=== PATIENT | female | born 1945 | race Caucasian/White ===

== ENCOUNTER 2017-03-28 10:32 | Inpatient (IN) | payer MEDICARE, OTHER ==
[~2017-03-28] VITALS: Ht 162.6 cm; Wt 94.9 kg
[2017-03-28 12:02] LABS: BASOPHIL 0.4 % (0-2); EOSINOPHIL 1.9 % (0-7); HCT 34.6 % (37.0-47.0); HGB 11.9 g/dl (12.5-16.0); LYMPHOCYTE 17.4 % (15-48); MCH 32.1 pg (25.0-31.0); MCHC 34.4 g/dL (32.0-36.0); MCV 93.3 fL (78.0-100.0); MONOCYTE 8.8 % (0-12); NEUTROPHIL 71.5 % (41-80); PLT 192 K/uL (150-400); RBC 3.71 M/uL (4.20-5.40); RDW 12.6 % (11.5-14.0); WBC 5.4 K/uL (4.0-10.5)
[2017-03-28 12:10] LABS: INR 1.9 (0.9-1.2); PROTHROMBIN TIME 21.2 SECONDS (11.7-14.0); PTT 37.1 SECONDS (23.2-31.4)
[2017-03-28 12:16] LABS: ALBUMIN 3.8 g/dL (3.4-4.8); BILIRUBIN - TOTAL 0.5 mg/dL (0.1-1.0); CREATININE 0.7 mg/dL (0.5-1.0); GLOBULIN (CALCULATION) 2.8 g/dL (2.2-4.2); MAGNESIUM 1.65 mg/dL (1.40-2.10); POTASSIUM 3.4 mmol/L (3.5-5.1); TOTAL PROTEIN 6.6 g/dL (6.4-8.3)
[2017-03-28 12:24] LABS: MYOGLOBIN 30 ng/mL (26-65); TROPONIN T < 0.010 ng/mL
[2017-03-28 12:27] LABS: PRO-BNP 709 pg/mL (0-125)
[2017-03-28 17:20] LABS: CKMB 1.28 ng/mL (0.97-4.94); TROPONIN T < 0.010 ng/mL
[2017-03-28 17:50] LABS: BILIRUBIN NEGATIVE (NEGATIVE); BLOOD 1+ Ery/uL (NEGATIVE); CLARITY CLEAR (CLEAR); COLOR YELLOW (YELLOW); GLUCOSE (U) NORMAL (NORMAL); KETONE (U) NEGATIVE (NEGATIVE); LEUKOCYTES 2+ Leu/uL (NEGATIVE); NITRITE NEGATIVE (NEGATIVE); PROTEIN NEGATIVE (NEGATIVE); UROBILINOGEN 0.2 mg/dL (0.2-1.0)
[2017-03-29 04:59] LABS: HCT 32.2 % (37.0-47.0); HGB 10.7 g/dl (12.5-16.0); MCH 31.3 pg (25.0-31.0); MCHC 33.2 g/dL (32.0-36.0); MCV 94.2 fL (78.0-100.0); MPV 9.8 fL (6.0-9.5); RBC 3.42 M/uL (4.20-5.40); RDW 12.6 % (11.5-14.0); WBC 4.9 K/uL (4.0-10.5)
[2017-03-29 05:07] LABS: INR 2.04 (0.9-1.2); PROTHROMBIN TIME 22.4 SECONDS (11.7-14.0)
[2017-03-29 05:16] LABS: CREATININE 0.7 mg/dL (0.5-1.0); POTASSIUM 3.6 mmol/L (3.5-5.1)
[2017-03-29] MEDS ORDERED: VENTOLIN HFA IN18 GM INH (14:43)
[2017-03-29] MEDS ORDERED: ZESTRIL5 MG PO (14:44)
[2017-03-29] MEDS ORDERED: SYNTHROID100 MCG PO (14:44)
[2017-03-29] MEDS ORDERED: ZOLOFT100 MG PO (14:44)
[2017-03-29] MEDS ORDERED: PRILOSEC20 MG PO (14:44)
[2017-03-29] MEDS ORDERED: HCTZ12.5 MG PO (14:44)
[2017-03-29] MEDS ORDERED: PRIMIDONE PO (14:45)
[2017-03-29] MEDS ORDERED: LOPRESSOR25 MG PO (14:45)
[2017-03-29] MEDS ORDERED: COUMADIN4 MG PO (14:45)
[2017-03-29] MEDS ORDERED: ZOCOR40 MG PO (14:46)
== END 2017-03-29 12:40 | disposition home or self-care (01) | DRG 310 ==
LOC: FER 10:32 → FTCU 13:42
PROVIDERS: Emergency Medicine; ADMIT Internal Medicine
DX: I48.91 Unspecified atrial fibrillation (principal); I50.9 Heart failure, unspecified; J44.9 Chronic obstructive pulmonary disease, unspecified; I10 Essential (primary) hypertension; E78.5 Hyperlipidemia, unspecified; Z79.01 Long term (current) use of anticoagulants; F32.9 Major depressive disorder, single episode, unspecified; E03.9 Hypothyroidism, unspecified
CPT/HCPCS: 36415; 71010; 80048; 80053; 81003; 82550; 82553; 83735; 83874; 83880; 84443; 84484; 85025; 85610; 85730; 93005

== ENCOUNTER 2017-04-17 21:46 | Emergency (ER) | payer MEDICARE, OTHER ==
[~2017-04-17 21:46] MED LIST: COUMADIN4 MG PO; HCTZ12.5 MG PO; LOPRESSOR25 MG PO; PRILOSEC20 MG PO; PRIMIDONE PO; SYNTHROID100 MCG PO; VENTOLIN HFA IN18 GM INH; ZESTRIL5 MG PO; ZOCOR40 MG PO; ZOLOFT100 MG PO
[2017-04-17 22:54] LABS: BASOPHIL 0.2 % (0-2); EOSINOPHIL 3.2 % (0-7); HCT 33.1 % (37.0-47.0); HGB 11.3 g/dl (12.5-16.0); LYMPHOCYTE 29.1 % (15-48); MCH 31.3 pg (25.0-31.0); MCHC 34.1 g/dL (32.0-36.0); MCV 91.7 fL (78.0-100.0); MONOCYTE 10.3 % (0-12); MPV 9.6 fL (6.0-9.5); NEUTROPHIL 57.2 % (41-80); PLT 162 K/uL (150-400); RBC 3.61 M/uL (4.20-5.40); RDW 12.6 % (11.5-14.0); WBC 4.1 K/uL (4.0-10.5)
[2017-04-17 23:04] LABS: INR 4.2 (0.9-1.2); PROTHROMBIN TIME 39.6 SECONDS (11.7-14.0)
[2017-04-17 23:09] LABS: ALBUMIN 3.8 g/dL (3.4-4.8); BILIRUBIN - TOTAL 0.4 mg/dL (0.1-1.0); CREATININE 0.9 mg/dL (0.5-1.0); GLOBULIN (CALCULATION) 2.6 g/dL (2.2-4.2); POTASSIUM 3.2 mmol/L (3.5-5.1); TOTAL PROTEIN 6.4 g/dL (6.4-8.3)
== END 2017-04-18 03:54 | disposition home or self-care (01) ==
LOC: FER 21:46
PROVIDERS: Emergency Medicine Emergency Medical Services
DX: T82.838A Hemorrhage due to vascular prosthetic devices, implants and grafts, initial encounter (principal); I71.4 Abdominal aortic aneurysm, without rupture; J44.9 Chronic obstructive pulmonary disease, unspecified; Z88.8 Allergy status to other drugs, medicaments and biological substances; Z79.01 Long term (current) use of anticoagulants; Y83.8 Other surgical procedures as the cause of abnormal reaction of the patient, or of later complication, without mention of misadventure at the time of the procedure
CPT/HCPCS: 36415; 75635; 80053; 85025; 85610; 85730; Q9967

== ENCOUNTER 2021-04-28 14:14 | Inpatient (IN) | payer MEDICARE, OTHER ==
[~2021-04-28] VITALS: Ht 167.6 cm; Wt 102.2 kg
[~2021-04-28 14:14] MED LIST changes: +ABILIFY10 MG PO; +AMOX TR-K CLV1 EAC4 PO; +ANORO ELLIPTA1 EACH INH; +CRESTOR10 MG PO; +DITROPAN XL *OUT5 MG PO; +ELIQUIS5 MG PO; +METOPROLOL SUCC50 MG PO; +METRONIDAZOLE500 MG PO; +SINGULAIR10 MG PO; +TOPROL XL50 MG PO; +ZESTORETIC 10-1 EACH PO
[2021-04-28 15:31] LABS: BASOPHIL 0.8 % (0-2); EOSINOPHIL 1.9 % (0-7); HCT 41.8 % (37.0-47.0); HGB 13.9 g/dl (12.5-16.0); LYMPHOCYTE 13.7 % (15-48); MCH 32.2 pg (25.0-31.0); MCHC 33.3 g/dL (32.0-36.0); MCV 96.8 fL (78.0-100.0); MONOCYTE 3.8 % (0-12); MPV 10.3 fL (6.0-9.5); NEUTROPHIL 79.4 % (41-80); NRBC 0; PLT 147 K/uL (150-400); RBC 4.32 M/uL (4.20-5.40); RDW 12.6 % (11.5-14.0); WBC 5.3 K/uL (4.0-10.5)
[2021-04-28 15:50] LABS: ALBUMIN 3.1 g/dL (3.4-5.0); BILIRUBIN - TOTAL 0.7 mg/dL (0.2-1.0); BUN/CREAT RATIO (CALC) 11.5 RATIO; CREATININE 0.87 mg/dL (0.51-0.95); GLOBULIN (CALCULATION) 3.3 g/dL; MAGNESIUM 1.5 mg/dL (1.8-2.4); POTASSIUM 3.2 mmol/L (3.5-5.1); TOTAL PROTEIN 6.4 g/dL (6.4-8.2)
[2021-04-28 15:54] LABS: PRO-BNP 2809 pg/mL (<125)
[2021-04-28 16:07] LABS: LACTIC ACID 2.1 mmol/L (0.4-1.9)
[2021-04-28] MEDS ORDERED: TOPROL XL 50 MG50 MG PO (20:16)
[2021-04-29 02:51] LABS: BILIRUBIN NEGATIVE (NEGATIVE); BLOOD TRACE-INTACT Ery/uL (NEGATIVE); CLARITY CLEAR (CLEAR); COLOR YELLOW (YELLOW); GLUCOSE (U) NORMAL (NORMAL); LEUKOCYTES 1+ Leu/uL (NEGATIVE); NITRITE POSITIVE (NEGATIVE); PROTEIN NEGATIVE (NEGATIVE); pH 6.5 (5.0-9.0)
[2021-04-29 02:59] LABS: BACTERIA 1+; URINARY WBC 20-50
[2021-04-29 04:07] LABS: BASOPHIL 0.2 % (0-2); EOSINOPHIL 0 % (0-7); HCT 37.6 % (37.0-47.0); HGB 12.6 g/dl (12.5-16.0); LYMPHOCYTE 11.5 % (15-48); MCH 32.4 pg (25.0-31.0); MCHC 33.5 g/dL (32.0-36.0); MCV 96.7 fL (78.0-100.0); MONOCYTE 6.5 % (0-12); MPV 10.2 fL (6.0-9.5); NEUTROPHIL 81.4 % (41-80); NRBC 0; PLT 141 K/uL (150-400); RBC 3.89 M/uL (4.20-5.40); RDW 12.6 % (11.5-14.0); WBC 4.8 K/uL (4.0-10.5)
[2021-04-29 04:37] LABS: BUN/CREAT RATIO (CALC) 15.1 RATIO; CREATININE 0.86 mg/dL (0.51-0.95); POTASSIUM 3.7 mmol/L (3.5-5.1)
[2021-04-29 16:21] LABS: IRON % SATURATION 14.5 %SAT (20-50)
[2021-04-30 04:37] LABS: BASOPHIL 0.1 % (0-2); EOSINOPHIL 0 % (0-7); HCT 38.9 % (37.0-47.0); HGB 12.8 g/dl (12.5-16.0); LYMPHOCYTE 7.7 % (15-48); MCH 32.7 pg (25.0-31.0); MCHC 32.9 g/dL (32.0-36.0); MCV 99.5 fL (78.0-100.0); MONOCYTE 2.1 % (0-12); MPV 10.8 fL (6.0-9.5); NEUTROPHIL 89.3 % (41-80); NRBC 0; PLT 130 K/uL (150-400); RBC 3.91 M/uL (4.20-5.40); RDW 12.7 % (11.5-14.0); WBC 7.3 K/uL (4.0-10.5)
[2021-04-30 04:56] LABS: BUN/CREAT RATIO (CALC) 17.5 RATIO; CREATININE 0.8 mg/dL (0.51-0.95); MAGNESIUM 1.8 mg/dL (1.8-2.4); POTASSIUM 4.2 mmol/L (3.5-5.1)
--- NOTE | 2021-04-30 14:11 | NUR ---
04/30/21 Ms. Hammer lives alone in an apartment. She has 02, rw, s.chair, concentrator and portable 02. Ms. Hammer reports to use the 02 at night. However, [facility], , reports to 02 to be ordered continous at 2L. Please faxed an order to [employer] at if the 02 liter flow is increased from 2L. - Ms. Hammer has one son whom she rarely sees. 2 neighbors and a nephew, Fadi Ferguson, assist at needed. [facility] provides home making 1 x per week. [facility] are [facility] 3 times per week. - Ms. Hammer chose [facility] for nursing services. [facility] [phone] if patient discharges over the weekend.
[2021-05-01 04:27] LABS: BASOPHIL 0.1 % (0-2); EOSINOPHIL 0 % (0-7); HCT 38.3 % (37.0-47.0); HGB 12.7 g/dl (12.5-16.0); MCH 32.2 pg (25.0-31.0); MCHC 33.2 g/dL (32.0-36.0); MONOCYTE 1.9 % (0-12); MPV 10.5 fL (6.0-9.5); NEUTROPHIL 92.3 % (41-80); NRBC 0; PLT 136 K/uL (150-400); RBC 3.95 M/uL (4.20-5.40); RDW 12.6 % (11.5-14.0)
[2021-05-01 04:28] LABS: WBC 7.5 K/uL (4.0-10.5)
[2021-05-01 04:48] LABS: ALBUMIN 2.9 g/dL (3.4-5.0); BILIRUBIN - TOTAL 0.3 mg/dL (0.2-1.0); BUN/CREAT RATIO (CALC) 20.2 RATIO; CREATININE 0.84 mg/dL (0.51-0.95); GLOBULIN (CALCULATION) 3.3 g/dL; MAGNESIUM 1.9 mg/dL (1.8-2.4); TOTAL PROTEIN 6.2 g/dL (6.4-8.2)
[2021-05-02 06:29] LABS: BASOPHIL 0.1 % (0-2); EOSINOPHIL 0 % (0-7); HCT 38.6 % (37.0-47.0); HGB 12.9 g/dl (12.5-16.0); LYMPHOCYTE 5.4 % (15-48); MCH 32.3 pg (25.0-31.0); MCHC 33.4 g/dL (32.0-36.0); MCV 96.5 fL (78.0-100.0); MONOCYTE 2.7 % (0-12); MPV 10.9 fL (6.0-9.5); NRBC 0; PLT 140 K/uL (150-400); RDW 12.7 % (11.5-14.0); WBC 7.5 K/uL (4.0-10.5)
[2021-05-02 06:30] LABS: NEUTROPHIL 91.3 % (41-80)
[2021-05-02 06:48] LABS: BUN/CREAT RATIO (CALC) 22.5 RATIO; CREATININE 0.8 mg/dL (0.51-0.95); MAGNESIUM 1.8 mg/dL (1.8-2.4); PHOSPHORUS 4.2 mg/dL (2.6-4.7); POTASSIUM 4.4 mmol/L (3.5-5.1)
[2021-05-04 04:13] LABS: BASOPHIL 0.1 % (0-2); EOSINOPHIL 0.7 % (0-7); HCT 38.6 % (37.0-47.0); HGB 13.1 g/dl (12.5-16.0); LYMPHOCYTE 12.9 % (15-48); MCH 32.3 pg (25.0-31.0); MCHC 33.9 g/dL (32.0-36.0); MCV 95.1 fL (78.0-100.0); MONOCYTE 6.3 % (0-12); MPV 10.4 fL (6.0-9.5); NEUTROPHIL 79.4 % (41-80); NRBC 0; PLT 132 K/uL (150-400); RBC 4.06 M/uL (4.20-5.40); RDW 12.7 % (11.5-14.0)
[2021-05-04 04:31] LABS: BUN/CREAT RATIO (CALC) 23.9 RATIO; CREATININE 0.88 mg/dL (0.51-0.95); MAGNESIUM 1.6 mg/dL (1.8-2.4); POTASSIUM 3.6 mmol/L (3.5-5.1)
[2021-05-06] MEDS ORDERED: VENTOLIN HFA IN18 GM INH (15:25)
== END 2021-05-06 16:57 | disposition home health service (06) | DRG 871 ==
LOC: FER 14:14 → FTCU 19:01
PROVIDERS: Emergency Medicine; Nurse Practitioner; ADMIT Internal Medicine
DX: A41.9 Sepsis, unspecified organism (principal); J96.01 Acute respiratory failure with hypoxia; J96.02 Acute respiratory failure with hypercapnia; J44.1 Chronic obstructive pulmonary disease with (acute) exacerbation; E87.2 Acidosis; J44.0 Chronic obstructive pulmonary disease with (acute) lower respiratory infection; N30.00 Acute cystitis without hematuria; I48.20 Chronic atrial fibrillation, unspecified; R65.20 Severe sepsis without septic shock; I10 Essential (primary) hypertension; Z20.822 Contact with and (suspected) exposure to COVID-19; J20.9 Acute bronchitis, unspecified; I48.91 Unspecified atrial fibrillation; E78.5 Hyperlipidemia, unspecified; D50.9 Iron deficiency anemia, unspecified; G25.0 Essential tremor; E83.42 Hypomagnesemia; K44.9 Diaphragmatic hernia without obstruction or gangrene; E03.9 Hypothyroidism, unspecified; K21.9 Gastro-esophageal reflux disease without esophagitis; F17.210 Nicotine dependence, cigarettes, uncomplicated; G20 Parkinson's disease; E11.9 Type 2 diabetes mellitus without complications; E87.6 Hypokalemia; E86.1 Hypovolemia; Z90.710 Acquired absence of both cervix and uterus; Z82.3 Family history of stroke; Z82.49 Family history of ischemic heart disease and other diseases of the circulatory system; Z82.5 Family history of asthma and other chronic lower respiratory diseases; Z90.49 Acquired absence of other specified parts of digestive tract; Z80.9 Family history of malignant neoplasm, unspecified; Z79.01 Long term (current) use of anticoagulants; Z79.899 Other long term (current) drug therapy; Z83.3 Family history of diabetes mellitus; Z99.81 Dependence on supplemental oxygen
CPT/HCPCS: 36415; 36600; 71045; 71275; 80048; 80053; 81001; 82607; 82803; 83540; 83550; 83605; 83735; 83880; 84100; 84145; 84484; 85025; 85379; 87040; 87088; 92507; 93005; 94010; 94640; 94667; 94668; 97162; 97166; 97530; 97530-GP; 97535; J0456; J0696; J2543; J2916; J2920; J2930; J3475; J7030; J7050; J7120; Q9967; U0002

== ENCOUNTER 2021-09-09 15:45 | Emergency (ER) | payer MEDICARE, OTHER ==
[~2021-09-09 15:45] MED LIST changes: +LASIX20 MG PO; +OXYGEN; +TOPROL XL 50 MG50 MG PO; +TRELEGY ELLIPT1 EACH INH
[2021-09-09 16:49] LABS: BASOPHIL 0.6 % (0-2); EOSINOPHIL 2.8 % (0-7); HCT 39.7 % (37.0-47.0); LYMPHOCYTE 17.7 % (15-48); MCH 32.5 pg (25.0-31.0); MCHC 32.7 g/dL (32.0-36.0); MCV 99.3 fL (78.0-100.0); MONOCYTE 6.5 % (0-12); MPV 10.1 fL (6.0-9.5); NEUTROPHIL 72.2 % (41-80); NRBC 0; PLT 151 K/uL (150-400); RDW 11.8 % (11.5-14.0); WBC 6.3 K/uL (4.0-10.5)
[2021-09-09 17:14] LABS: ALBUMIN 3.5 g/dL (3.4-5.0); BILIRUBIN - TOTAL 0.6 mg/dL (0.2-1.0); BUN/CREAT RATIO (CALC) 13.1 RATIO; CREATININE 0.84 mg/dL (0.51-0.95); GLOBULIN (CALCULATION) 3.4 g/dL; POTASSIUM 3.8 mmol/L (3.5-5.1); TOTAL PROTEIN 6.9 g/dL (6.4-8.2)
[2021-09-09 18:18] LABS: PRO-BNP 1167 pg/mL (<125)
== END 2021-09-09 20:20 | disposition home or self-care (01) ==
LOC: FER 15:45
PROVIDERS: Emergency Medicine
DX: M79.89 Other specified soft tissue disorders (principal); I11.0 Hypertensive heart disease with heart failure; I50.9 Heart failure, unspecified; J44.9 Chronic obstructive pulmonary disease, unspecified; I48.91 Unspecified atrial fibrillation; I25.10 Atherosclerotic heart disease of native coronary artery without angina pectoris; E11.9 Type 2 diabetes mellitus without complications; F17.200 Nicotine dependence, unspecified, uncomplicated
CPT/HCPCS: 36415; 71045; 71275; 80053; 83880; 84484; 85025; 85379; 93970; J1940; Q9967

== ENCOUNTER 2022-04-09 15:04 | Emergency (ER) | payer MEDICARE, OTHER ==
[2022-04-09 15:56] LABS: BASOPHIL 0.5 % (0-2); HCT 42.5 % (37.0-47.0); HGB 13.9 g/dl (12.5-16.0); LYMPHOCYTE 15.8 % (15-48); MCH 31.7 pg (25.0-31.0); MCHC 32.7 g/dL (32.0-36.0); MONOCYTE 7.5 % (0-12); MPV 9.8 fL (6.0-9.5); NRBC 0; PLT 150 K/uL (150-400); RBC 4.38 M/uL (4.20-5.40); RDW 11.8 % (11.5-14.0); WBC 8.2 K/uL (4.0-10.5)
[2022-04-09 16:14] LABS: CREATININE 1.17 mg/dL (0.51-0.95); POTASSIUM 3.3 mmol/L (3.5-5.1)
== END 2022-04-09 16:37 | disposition home or self-care (01) ==
LOC: FER 15:04
PROVIDERS: Emergency Medicine
DX: J44.9 Chronic obstructive pulmonary disease, unspecified (principal); I10 Essential (primary) hypertension; F17.210 Nicotine dependence, cigarettes, uncomplicated; Z28.310 Unvaccinated for COVID-19
CPT/HCPCS: 36415; 71046; 80048; 84484; 85025; 93005